=== PATIENT | male | born 1970 | race Caucasian/White ===

== ENCOUNTER 2020-03-22 11:05 | Emergency (ER) | payer OTHER ==
[~2020-03-22] VITALS: Ht 154.9 cm; Wt 72.6 kg
[~2020-03-22 11:05] MED LIST: ANTI-GAS 8080 MG PO; PRI20 PO; SERO100 PO
[2020-03-22 11:12] VITALS: Ht 154.9 cm; Wt 72.6 kg
[2020-03-22 12:02] LABS: BASOPHIL % 0.7 % (0-2); PLATELET COUNT 215 x10^3mcL (130-400)
[2020-03-22 12:05] LABS: RED CELL DISTRIBUTION WIDTH 14.6 % (11.5-14.5)
[2020-03-22 12:19] LABS: CALCIUM 8.7 mg/dL (8.5-10.1); CARBON DIOXIDE 21.6 mmol/L (21-32); CHLORIDE SERUM 102 mmol/L (98-107); CREATININE SERUM 1.1 mg/dL (0.7-1.3); GFR1 > 60 mL/min; GLUCOSE SERUM 125 mg/dL (74-106); POTASSIUM SERUM 3.9 mmol/L (3.5-5.1); SODIUM SERUM 134 mmol/L (136-145)
[2020-03-22 12:24] LABS: ALBUMIN 3.5 g/dL (3.4-5.0); ALKALINE PHOSPHATASE 84 U/L (46-116); ALT/SGPT 28 U/L (16-63); AST/SGOT 27 U/L (15-37); BILIRUBIN TOTAL 0.58 mg/dL (0.20-1.00); TOTAL PROTEIN, SERUM 7.9 g/dL (6.4-8.2)
[2020-03-22 20:00] VITALS: BP 126/79
== END 2020-03-22 20:00 | disposition short-term general hospital (02) ==
LOC: ED 11:05
PROVIDERS: Emergency Medicine
DX: R33.9 Retention of urine, unspecified (principal); Z98.890 Other specified postprocedural states
CPT/HCPCS: J2270; J3010

== ENCOUNTER 2020-03-26 02:59 | Inpatient (IN) | payer OTHER ==
[~2020-03-26] VITALS: Ht 160 cm; Wt 73.1 kg
[2020-03-26 03:29] VITALS: Ht 160 cm; Wt 73.1 kg
[2020-03-26] MEDS ORDERED: CEFDINIR300 M1 PO (06:37)
[2020-03-26 07:13] LABS: BASOPHIL % 0.3 % (0-2); PLATELET COUNT 253 x10^3mcL (130-400); RED CELL DISTRIBUTION WIDTH 14.3 % (11.5-14.5)
[2020-03-26 07:24] LABS: CALCIUM 8.9 mg/dL (8.5-10.1); CARBON DIOXIDE 29.7 mmol/L (21-32); CHLORIDE SERUM 108 mmol/L (98-107); CREATININE SERUM 1.3 mg/dL (0.7-1.3); GFR1 > 60 mL/min; GLUCOSE SERUM 111 mg/dL (74-106); POTASSIUM SERUM 3.6 mmol/L (3.5-5.1); SODIUM SERUM 144 mmol/L (136-145)
[2020-03-26 07:28] LABS: ALBUMIN 3.4 g/dL (3.4-5.0); ALKALINE PHOSPHATASE 69 U/L (46-116); ALT/SGPT 30 U/L (16-63); AST/SGOT 23 U/L (15-37); BILIRUBIN TOTAL 0.6 mg/dL (0.20-1.00); TOTAL PROTEIN, SERUM 7.3 g/dL (6.4-8.2)
[2020-03-26 07:43] LABS: T3 TOTAL 1.15 ng/mL
[2020-03-26 07:47] LABS: CHOLESTEROL/HDL RATIO 6.1
[2020-03-26 07:59] LABS: FREE T4 1.23 ng/dL (0.76-1.46); FREE THYROXINE INDEX 3.1 ug/dL (1.4-4.5); T4(THYROXINE) 8.5 ug/dL (4.7-13.3)
[2020-03-27] VITALS (8 sets, daily range): BP systolic 112–138; BP diastolic 75–89
[2020-03-27 06:41] LABS: BASOPHIL % 0.5 % (0-2); PLATELET COUNT 217 x10^3mcL (130-400); RED CELL DISTRIBUTION WIDTH 14.3 % (11.5-14.5)
[2020-03-27 07:02] LABS: CALCIUM 8.9 mg/dL (8.5-10.1); CARBON DIOXIDE 27.3 mmol/L (21-32); CHLORIDE SERUM 110 mmol/L (98-107); CREATININE SERUM 1.1 mg/dL (0.7-1.3); GFR1 > 60 mL/min; GLUCOSE SERUM 96 mg/dL (74-106); POTASSIUM SERUM 3.5 mmol/L (3.5-5.1); SODIUM SERUM 146 mmol/L (136-145)
[2020-03-28 04:25] LABS: UA SPECIFIC GRAVITY 1.025 (1.005-1.035); microscopic required? YES; urine erythrocyte 3+ (NEGATIVE)
[2020-03-28 07:17] LABS: PLATELET COUNT 223 x10^3mcL (130-400); RED CELL DISTRIBUTION WIDTH 14.4 % (11.5-14.5)
[2020-03-28 07:22] LABS: BASOPHIL % 0 % (0-2)
[2020-03-28 07:38] LABS: CALCIUM 9.2 mg/dL (8.5-10.1); CARBON DIOXIDE 25.2 mmol/L (21-32); CHLORIDE SERUM 106 mmol/L (98-107); CREATININE SERUM 1.1 mg/dL (0.7-1.3); GFR1 > 60 mL/min; GLUCOSE SERUM 109 mg/dL (74-106); POTASSIUM SERUM 4.2 mmol/L (3.5-5.1); SODIUM SERUM 140 mmol/L (136-145)
[2020-03-28 09:18] VITALS: BP 112/75
[2020-03-28] MEDS ORDERED: LEVAQUIN500 M1 PO (11:42)
[2020-03-28 12:52] VITALS: BP 93/59
[2020-03-28 13:04] VITALS: BP 93/59
== END 2020-03-28 16:22 | disposition home health service (06) | DRG 468 ==
LOC: ED 02:59 → MU 05:42
PROVIDERS: Emergency Medicine; Urology; ADMIT Internal Medicine; ATTEND Internal Medicine
PROC: 0T7D8DZ Dilation of Urethra with Intraluminal Device, Via Natural or Artificial Opening Endoscopic (ICD-10-PCS; principal; 2020-03-27 16:00)
DX: N35.919 Unspecified urethral stricture, male, unspecified site (principal); E87.1 Hypo-osmolality and hyponatremia; R33.9 Retention of urine, unspecified; Q54.9 Hypospadias, unspecified; E78.00 Pure hypercholesterolemia, unspecified; R62.50 Unspecified lack of expected normal physiological development in childhood; T83.098A Other mechanical complication of other urinary catheter, initial encounter; Y83.8 Other surgical procedures as the cause of abnormal reaction of the patient, or of later complication, without mention of misadventure at the time of the procedure; N40.1 Benign prostatic hyperplasia with lower urinary tract symptoms; Z20.828 Contact with and (suspected) exposure to other viral communicable diseases; Q90.9 Down syndrome, unspecified; Z79.899 Other long term (current) drug therapy; Z79.891 Long term (current) use of opiate analgesic; Y92.89 Other specified places as the place of occurrence of the external cause; Z79.01 Long term (current) use of anticoagulants
CPT/HCPCS: 83880; 84439; C1758; C9113; G0378; J0690; J3010; J3490; Q0092